=== PATIENT | male | born 1945 ===

== ENCOUNTER 2023-12-06 20:47 | Emergency (ER) | payer OTHER, SELFPAY ==
[2023-12-06 20:51] VITALS: BP 169/80
[2023-12-06 21:10] LABS: % Eosinophils 3.7 % (0-6); % Immature Granulocytes 0.3 % (0-0.5); % Lymphocytes 30.8 % (20.5-51.1); % Monocytes 9.4 % (1.7-9.3); % Neutrophils 54.8 % (42.2-75.2); Absolute Basophils 0.1 10^3/uL (0-0.2); Absolute Eosinophils 0.3 10^3/uL (0-0.7); Absolute Lymphocytes 2.3 10^3/uL (1.2-3.4); Absolute Monocytes 0.7 10^3/uL (0.1-0.6); Hematocrit 38.1 % (39.0-52.0); Hemoglobin 13.2 g/dL (13.0-18.0); Mean Corp Hgb Conc. 34.6 g/dL (33.0-37.0); Mean Corpuscular Hgb 32.9 pg (27.0-31.0); Mean Platelet Volume 9.3 fL (7.4-10.4); Nucleated Red Blood Cells % 0 % (-); Platelet Count 238 10^3/uL (130-400); Red Blood Cell Count 4.01 10^6/uL (4.70-6.10); Red Cell Dist. Width 12.5 % (11.5-14.5); White Blood Cell Count 7.3 10^3/uL (4.8-10.8)
[2023-12-06 21:26] LABS: ALT (SGPT) 33 U/L (0-50); AST (SGOT) 43 U/L (17-59); Albumin 4.6 g/dl (3.5-5.0); Alkaline Phosphatase 45 U/L (38-126); Blood Urea Nitrogen 23 mg/dl (9-20); Calcium 9.5 mg/dl (8.4-10.2); Carbon Dioxide 29 mmol/L (22-30); Chloride 100 mmol/L (98-107); Glucose 102 mg/dl (70-99); Potassium 4.1 mmol/L (3.5-5.1); Sodium 141 mmol/L (135-145); Total Bilirubin 0.6 mg/dl (0.2-1.3); Total Protein 7.2 g/dl (6.3-8.2); eGFR > 60.00
[2023-12-06 21:37] LABS: Troponin I < 0.012 ng/ml
[2023-12-07 00:08] VITALS: BMI 26.2
[2023-12-07 00:11] VITALS: BP 153/82
--- NOTE | 2023-12-07 00:44 | ED.GENMED ---
History of Present Illness
General
Chief Complaint: Chest Pain
Source: patient and family
Time Seen by Provider: 12/07/23 00:25
History of Present Illness
History of Present Illness:
78-year-old male who was sitting in restoration [facility], and suddenly his watch went off alerting him of a heart related event. He was completely asymptomatic when this happened. There was a no cell phone policy in the restoration and so when this went off
in the quiet service, he was startled. He was tried to turn the phone/watch off, and noted as he was struggling with this that he was clenching his jaw and he felt like his heart rate was elevated and that he had mild discomfort in his jaw which he
thinks is from clenching. Symptoms resolved shortly after and patient is now asymptomatic. He denies having any chest pain, dyspnea, neck pain, headache, dizziness, diaphoresis, nausea, vomiting, or other complaints. He denies a history of
coronary disease. Of note, patient quickly took an aspirin when his watch went off.
Past History
Past History
ED Past Medical History: Other (PVCs, hypertension, hypercholesterolemia)
ED Past Surgical History: Orthopedic
Social History
Tobacco: Non-smoker
Alcohol: None
Personal:
Living: with family
Phy Exam
Physical Exam
Physical Exam:
GENERAL: Alert , in no apparent distress
EYE: pupils equal and reactive
NECK: Supple, no significant adenopathy.
ENT: o/p clr, mmm.
CARDIAC: Regular rate and rhythm .
LUNGS: Clear breath sounds bilaterally, no acute respiratory distress, no wheezes/rales/rhonchi
ABDOMEN: Soft, without focal tenderness, no r/g, no cvat
NEUROLOGICAL: Alert and oriented, no focal neuro deficits
SKIN: Warm and dry, skin intact.
MUSCULOSKELETAL: No edema, well perfused.
PSYCH: Normal and appropriate interaction.
Scores
Heart Score for Chest Pain Patients
STEMI patient?: Not applicable
Course
Orders/Labs/Results
Orders:
Orders
12/06/23 20:48
ECG [Electrocardiogram (*1)] Urgent
Reason for Study: Chest Pain
12/06/23 20:49
EKG- Treatment ONCE
12/06/23 20:59
Comprehensive Metabolic Panel Urgent
Troponin I Urgent
12/06/23 21:00
Complete Blood Count/With Diff Urgent
12/07/23 00:58
Troponin I Urgent
Abnormal Lab Results
12/06/23 12/06/23
20:59 21:00
RBC 4.01 L 10^6/uL
(4.70-6.10)
Hct 38.1 L %
(39.0-52.0)
MCV 95.0 H fL
(80.0-94.0)
MCH 32.9 H pg
(27.0-31.0)
Absolute Monos (auto) 0.7 H 10^3/uL
(0.1-0.6)
Monocytes % 9.4 H %
(1.7-9.3)
BUN 23 H mg/dl
(9-20)
Glucose 102 H mg/dl
(70-99)
12/06/23 21:00
12/06/23 20:59
Vital Signs
Initial and Last Documented VS:
Initial Vital Signs
Pulse Resp BP Pulse Ox
78 16 169/80 99
12/06/23 20:51 12/06/23 20:51 12/06/23 20:51 12/06/23 20:51
Last Documented Vital Signs
Pulse Resp BP Pulse Ox
57 21 153/82 99
12/07/23 00:11 12/07/23 00:11 12/07/23 00:11 12/07/23 00:11
*Critical Care Note
Total Time (30-74mins, 75-104mins- exclusive of procedures): Not Applicable
Update Note
Update Note:
Patient presents to the Emergency Department with __palpitations and jaw pain
Number and Complexity of Problems Addressed at the Encounter
� Chronic conditions affecting care:
� Acute Exacerbation and/or Progression of Chronic Illness:
� Differential Diagnosis includes: But not limited to arrhythmia such as A-fib, or SVT, anxiety, etc.
Amount and/or Complexity of Data to be Reviewed and Analyzed
� I performed an independent evaluation of and my interpretation is:
EKG: Read by me, normal sinus rhythm with PVC, normal rate, LAD, no acute ischemia
CT:
Xrays:
Laboratory Studies: Unremarkable
Other:
� Review of other/old records reveals:
� Clinical information was obtained by an independent historian: who is bedside
� Prescriptions/Medications Considered but not given:
� Further testing considered but not performed:
Risk of Complications and/or Morbidity or Mortality of Patient Management
� Social determinants of health affecting care:
� Discussion with other providers (PCP, Hospitalists, Consultants, etc):
� Escalation of care including admission/observation vs risk of discharge considered: Highly doubt ACS as symptoms very atypical, ECG nonconcerning, first troponin within normal limits. Will recheck troponin. Unclear why watch
alerted him, may have been related to his history of PVCs or a new rhythm disturbance versus artifact. Rhythm is normal here in the ER. Will continue to observe on monitor.
1:48 AM patient remains asymptomatic, no rhythm disturbances noted here. Repeat troponin unremarkable. Patient will be discharged with instructions for close follow-up with cardiology, reasons return the emergency department. at bedside and
also received this information. They are pleased with the plan. Clarification, although triage note states chest pain, patient specifically denies having chest pain at any time.
ED Attending Note
-
Portions of this chart may have been created with voice recognition software.� Occasional wrong word or��sound alike� substitutions may have occurred due to the inherent limitations of voice recognition software.
Discharge Plan
Departure
Patient Disposition: Home (Routine Discharge)
Date of Disposition: 12/07/23
Time of Disposition: 01:46
Patient with high blood pressure during this ER visit?: Yes
Condition: Good
Discharge Problem:
Palpitation
Instructions: Palpitations, BLOOD PRESSURE
Referrals:
Rosemarie Briceño, DO [Family Provider] -
Activity Restrictions/Additional Instructions:
IF YOU DEVELOP CHEST PAIN, TROUBLE BREATHING, DIZZINESS, FEVER, PALPITATIONS, OR OTHER WORRISOME SIGNS, GO TO THE ER IMMEDIATELY!
Interventions
Interventions:
*Risk Screen - Suicide Last Done: 12/06/23 20:51
*General Assessment Last Done: 12/07/23 00:08
*Neglect/Abuse Screening Last Done: 12/06/23 20:51
ED- Fall Risk Assessment Last Done: 12/07/23 00:08
*ED COVID-19 Vaccine History Last Done: 12/07/23 00:08
ED- Cardiac Assessment Last Done: 12/07/23 00:08
Discharge Date and Time
Print Language: LATVIAN
[2023-12-07 01:00] VITALS: BP 124/59
[2023-12-07 01:31] LABS: Troponin I < 0.012 ng/ml
[2023-12-07 02:00] VITALS: BP 116/68
== END 2023-12-07 02:26 | disposition home or self-care (01) ==
LOC: EMR 20:47
PROVIDERS: Emergency Medicine; EMERGENCY PHYSICIAN Emergency Medicine; FAMILY PHYSICIAN Family Medicine
DX: R00.2 Palpitations (principal); I10 Essential (primary) hypertension; E78.00 Pure hypercholesterolemia, unspecified
CPT/HCPCS: 99284; 80053; 84484; 85025; 93005